=== PATIENT | male | born 1945 | race Caucasian/White ===

== ENCOUNTER 2020-12-27 12:44 | Inpatient (IN) | payer OTHER ==
[~2020-12-27] VITALS: Ht 182.9 cm; Wt 98.5 kg
[2020-12-27 14:23] LABS: MEAN CORPUSCULAR HEMOGLOBIN 29.9 pg (27.5-34.5); MEAN CORPUSCULAR HGB CONC 34.5 g/dL (33.2-36.2); MEAN PLATELET VOLUME 10.5 fL (7.4-10.4); PLATELET COUNT 184 x10^3/uL (130-400); RED BLOOD COUNT 5.43 x10^6/uL (4.38-5.82); RED CELL DISTRIBUTION WIDTH 13.4 % (9.4-14.8)
[2020-12-27 16:28] LABS: BAND#(MANUAL) 1.94 x10^3/uL; BANDS%(MANUAL) 13 % (0-7); LYMPH#(MANUAL) 0.15 x10^3/uL (1-3.4); LYMPHS% (MANUAL) 1 % (22-44); MONOS#(MANUAL) 0.75 x10^3/uL (0.3-2.7); MONOS% (MANUAL) 5 % (2-9); SEG#(MANUAL) 12.07 x10^3/uL (1.8-6.8); SEGS% (MANUAL) 81 % (42-75)
[2020-12-27 16:29] LABS: <PLATELET ESTIMATE> ADEQUATE; <RBC MORPHOLOGY> NORMAL; LARGE PLATELETS 1+
[2020-12-27] MEDS ORDERED: CEFTRIAXONE 1,000 MG in DEXTROSE 5% 50 ML IVPB ONE (17:00)
[2020-12-27] MEDS ORDERED: ACETAMINOPHEN 325 MG TABLET ONE (17:09)
--- NOTE | 2020-12-27 17:24 | NUR ---
ekg at the bedside
[2020-12-27] MEDS ORDERED: ACETAMINOPHEN 325 MG TABLET PO ONE (17:30)
[2020-12-27 17:49] LABS: ALANINE AMINOTRANSFERASE 84 U/L (12-78); ALBUMIN 2.6 g/dL (3.4-5.0); ANION GAP 10 mmol/L (5-15); CALCIUM 8.2 mg/dL (8.5-10.1); CHLORIDE 99 mmol/L (98-107)
[2020-12-27 17:50] LABS: ALKALINE PHOSPHATASE 91 U/L (45-117); BILIRUBIN,TOTAL 1.1 mg/dL (0.2-1.0)
[2020-12-27] MEDS ORDERED: TAMS-11 PO (18:41)
[2020-12-27] MEDS ORDERED: IBRU140T PO (18:41)
--- NOTE | 2020-12-27 18:56 | NUR ---
attempted report to [facility] on the floor for admission. we will await for readiness.
--- NOTE | 2020-12-27 18:56 | NUR ---
RECEIVED REPORT FROM [facility]. TRANSFER OF CARE
--- NOTE | 2020-12-27 19:33 | NUR ---
GAVE REPORT TO ROWEAN HARDWICK. PT CONDITION UNCHANGED. NADN. VSS ON 2LO NC.
[2020-12-27 20:07] VITALS: BP 123/63
[2020-12-27] MEDS ORDERED: ONDANSETRON ODT 4 MG PO PRN (21:00)
[2020-12-27] MEDS ORDERED: POLYETHYLENE GLYCOL 17 GM PACKET PO PRN (21:00)
[2020-12-27] MEDS ORDERED: BISACODYL 10 MG SUPP PR PRN (21:00)
[2020-12-27] MEDS: AZITHROMYCIN 500 MG in SODIUM CHLORIDE 0.9% 250 ML IV SCH (21:15)
[2020-12-27] MEDS: ACETAMINOPHEN 325 MG TABLET PO PRN (21:22)
[2020-12-27 21:49] LABS: MICROSCOPIC INDICATED
[2020-12-27] MEDS: NS + 20MEQ KCL 1,000 ML IV SCH (22:29)
[2020-12-27] MEDS: HEPARIN 5,000 UNITS/ML, 1ML SQ SCH (22:44)
[2020-12-28] VITALS (7 sets, daily range): BP systolic 105–156; BP diastolic 56–74
[2020-12-28] MEDS: ACETAMINOPHEN 325 MG TABLET PO PRN ×2 (04:58→14:42)
[2020-12-28 06:07] LABS: BASOPHILS % (AUTO) 0 % (0-1); EOSINOPHILS % (AUTO) 0 % (1-7); LYMPHOCYTES % (AUTO) 1 % (22-44); MEAN CORPUSCULAR HEMOGLOBIN 29.7 pg (27.5-34.5); MEAN CORPUSCULAR HGB CONC 34.8 g/dL (33.2-36.2); MEAN PLATELET VOLUME 10.5 fL (7.4-10.4); MONOCYTES % (AUTO) 6 % (2-9); NEUTROPHILS % (AUTO) 93 % (42-75); PLATELET COUNT 150 x10^3/uL (130-400); RED BLOOD COUNT 4.39 x10^6/uL (4.38-5.82); RED CELL DISTRIBUTION WIDTH 13.4 % (9.4-14.8)
[2020-12-28 06:28] LABS: ALANINE AMINOTRANSFERASE 77 U/L (12-78); ALBUMIN 2.2 g/dL (3.4-5.0); ANION GAP 9 mmol/L (5-15); CALCIUM 7.7 mg/dL (8.5-10.1); CHLORIDE 103 mmol/L (98-107)
[2020-12-28 06:31] LABS: ALKALINE PHOSPHATASE 95 U/L (45-117); BILIRUBIN,TOTAL 0.7 mg/dL (0.2-1.0); TOTAL PROTEIN 5.3 g/dL (6.4-8.2)
[2020-12-28] MEDS: HEPARIN 5,000 UNITS/ML, 1ML SQ SCH ×3 (07:05→23:22)
[2020-12-28] MEDS: SENNA/DOCUSATE TABLET PO SCH (07:41)
[2020-12-28] MEDS: NS + 20MEQ KCL 1,000 ML IV SCH (08:00)
[2020-12-28 17:59] LABS: BASOPHILS % (AUTO) 0 % (0-1); EOSINOPHILS % (AUTO) 0 % (1-7); LYMPHOCYTES % (AUTO) 3 % (22-44); MEAN CORPUSCULAR HEMOGLOBIN 30.1 pg (27.5-34.5); MEAN CORPUSCULAR HGB CONC 34.4 g/dL (33.2-36.2); MEAN PLATELET VOLUME 10.8 fL (7.4-10.4); MONOCYTES % (AUTO) 7 % (2-9); NEUTROPHILS % (AUTO) 90 % (42-75); PLATELET COUNT 185 x10^3/uL (130-400); RED CELL DISTRIBUTION WIDTH 13.1 % (9.4-14.8)
[2020-12-28] MEDS ORDERED: POTASSIUM CHLORIDE 40 MEQ in SODIUM CHLORIDE 0.9% 500 ML IV ONE (18:00)
[2020-12-28] MEDS: CEFTRIAXONE 1,000 MG in DEXTROSE 5% 50 ML IVPB SCH (18:14)
[2020-12-28 18:52] LABS: RAPID INFLUENZA A Negative (Negative); RAPID INFLUENZA B Negative (Negative)
[2020-12-28] MEDS: AZITHROMYCIN 500 MG in SODIUM CHLORIDE 0.9% 250 ML IV SCH (21:01)
[2020-12-29 00:12] VITALS: BP 123/66
[2020-12-29] MEDS: NS + 20MEQ KCL 1,000 ML IV SCH ×2 (02:31→23:43)
[2020-12-29 05:24] LABS: ANION GAP 6 mmol/L (5-15); CALCIUM 7.6 mg/dL (8.5-10.1); CHLORIDE 104 mmol/L (98-107)
[2020-12-29 05:27] LABS: ALANINE AMINOTRANSFERASE 107 U/L (12-78); ALKALINE PHOSPHATASE 115 U/L (45-117); BILIRUBIN,TOTAL 0.4 mg/dL (0.2-1.0); CREATININE 1.02 mg/dL (0.7-1.3)
[2020-12-29] MEDS: HEPARIN 5,000 UNITS/ML, 1ML SQ SCH ×3 (06:39→23:43)
[2020-12-29 07:36] VITALS: BP 112/57
[2020-12-29] MEDS: SENNA/DOCUSATE TABLET PO SCH (09:02)
[2020-12-29] MEDS: TAMSULOSIN 0.4 MG CAP.ER.24H PO SCH (09:02)
[2020-12-29] MEDS ORDERED: POTASSIUM PHOSPHATE 44 MEQ in SODIUM CHLORIDE 0.9% 500 ML IV ONE (11:00)
[2020-12-29 13:56] VITALS: BP 138/70
[2020-12-29] MEDS: CEFTRIAXONE 1,000 MG in DEXTROSE 5% 50 ML IVPB SCH (17:10)
[2020-12-29 19:25] VITALS: BP 139/82
[2020-12-29] MEDS: AZITHROMYCIN 500 MG in SODIUM CHLORIDE 0.9% 250 ML IV SCH (20:43)
[2020-12-30 02:11] VITALS: BP 133/79
[2020-12-30 05:16] LABS: BASOPHILS % (AUTO) 1 % (0-1); EOSINOPHILS % (AUTO) 1 % (1-7); LYMPHOCYTES % (AUTO) 7 % (22-44); MEAN CORPUSCULAR HEMOGLOBIN 29.8 pg (27.5-34.5); MEAN CORPUSCULAR HGB CONC 34.4 g/dL (33.2-36.2); MEAN PLATELET VOLUME 10.4 fL (7.4-10.4); MONOCYTES % (AUTO) 9 % (2-9); NEUTROPHILS % (AUTO) 84 % (42-75); PLATELET COUNT 227 x10^3/uL (130-400); RED BLOOD COUNT 4.78 x10^6/uL (4.38-5.82); RED CELL DISTRIBUTION WIDTH 13.3 % (9.4-14.8)
[2020-12-30 05:22] LABS: ANION GAP 8 mmol/L (5-15); CALCIUM 8.4 mg/dL (8.5-10.1); CHLORIDE 104 mmol/L (98-107)
[2020-12-30 05:26] LABS: CREATININE 0.79 mg/dL (0.7-1.3)
[2020-12-30 06:45] VITALS: BP 126/74
[2020-12-30] MEDS ORDERED: CYANOCOBALAMIN 1,000 MCG/ML, 1ML IM ONE (07:00)
[2020-12-30] MEDS ORDERED: ZINC SULFATE 220 MG CAPSULE PO SCH (09:00)
[2020-12-30] MEDS: POTASSIUM CHLORIDE 20 MEQ TAB.ER.PRT PO SCH ×2 (09:46→17:37)
[2020-12-30] MEDS: MULTIVITS,STRESS FORMULA 1 TABLET PO SCH (09:47)
[2020-12-30] MEDS: CHOLECALCIFEROL 5,000u TAB PO SCH (09:47)
[2020-12-30] MEDS: SENNA/DOCUSATE TABLET PO SCH (09:47)
[2020-12-30] MEDS: HEPARIN 5,000 UNITS/ML, 1ML SQ SCH ×2 (09:47→18:38)
[2020-12-30] MEDS: TAMSULOSIN 0.4 MG CAP.ER.24H PO SCH (09:47)
[2020-12-30] MEDS: ASCORBIC ACID 500 MG TABLET PO SCH ×2 (09:47→17:37)
[2020-12-30] MEDS: ZINC SULFATE 220 MG CAPSULE PO SCH (10:10)
[2020-12-30] MEDS: NS + 20MEQ KCL 1,000 ML IV SCH (12:50)
[2020-12-30 13:40] VITALS: BP 123/72
[2020-12-30] MEDS: CEFTRIAXONE 1,000 MG in DEXTROSE 5% 50 ML IVPB SCH (18:38)
[2020-12-30 19:10] VITALS: BP 136/77
[2020-12-30] MEDS: AZITHROMYCIN 500 MG in SODIUM CHLORIDE 0.9% 250 ML IV SCH (20:11)
[2020-12-31] MEDS: NS + 20MEQ KCL 1,000 ML IV SCH (01:36)
[2020-12-31] MEDS: HEPARIN 5,000 UNITS/ML, 1ML SQ SCH ×2 (01:44→10:25)
[2020-12-31 01:46] VITALS: BP 135/72
[2020-12-31 07:48] VITALS: BP 150/82
[2020-12-31] MEDS: POTASSIUM CHLORIDE 20 MEQ TAB.ER.PRT PO SCH (09:11)
[2020-12-31] MEDS: TAMSULOSIN 0.4 MG CAP.ER.24H PO SCH (09:11)
[2020-12-31] MEDS: ASCORBIC ACID 500 MG TABLET PO SCH (09:11)
[2020-12-31] MEDS: ZINC SULFATE 220 MG CAPSULE PO SCH (09:12)
[2020-12-31] MEDS: SENNA/DOCUSATE TABLET PO SCH (09:12)
[2020-12-31] MEDS: CHOLECALCIFEROL 5,000u TAB PO SCH (09:12)
[2020-12-31] MEDS: MULTIVITS,STRESS FORMULA 1 TABLET PO SCH (09:12)
[2020-12-31] MEDS ORDERED: ZINC220C8 PO (10:46)
[2020-12-31] MEDS ORDERED: AZIT250T PO (10:46)
[2020-12-31] MEDS ORDERED: CEFD300C37 PO (10:46)
[2020-12-31] MEDS ORDERED: ASCO500T9 PO (10:46)
[2020-12-31] MEDS ORDERED: CHOL500045 PO (10:46)
== END 2020-12-31 14:05 | disposition home or self-care (01) | DRG 871 ==
LOC: ED 19:14 → 3N 19:53 → ED 21:06 → 3N 21:07 → DCLOUNGE 12-31 13:51
PROVIDERS: ADMIT Internal Medicine; ATTEND Family Medicine
DX: A41.9 Sepsis, unspecified organism (principal); J18.9 Pneumonia, unspecified organism; J18.0 Bronchopneumonia, unspecified organism; J96.01 Acute respiratory failure with hypoxia; E46 Unspecified protein-calorie malnutrition; E87.1 Hypo-osmolality and hyponatremia; E87.2 Acidosis; B34.9 Viral infection, unspecified; Z20.822 Contact with and (suspected) exposure to COVID-19; N40.0 Benign prostatic hyperplasia without lower urinary tract symptoms; E87.6 Hypokalemia; R53.81 Other malaise; E55.9 Vitamin D deficiency, unspecified; Z85.6 Personal history of leukemia; Z87.891 Personal history of nicotine dependence; Z92.21 Personal history of antineoplastic chemotherapy
CPT/HCPCS: 36415; 71045; 80048; 80053; 81001; 82306; 83605; 83735; 84100; 84145; 85025; 87040; 87046; 87086; 87400; 89055; 93005; 96374; 99285; G0378; J0456; J0696; J1644; J3480; J3420; J7040; J7050